=== PATIENT | female | born 1945 | race Caucasian/White ===

== ENCOUNTER 2018-06-23 00:06 | Emergency (ER) | payer MEDICARE, OTHER ==
[2018-06-23 01:36] LABS: ADD MAN DIFF? NO
[2018-06-23 01:39] LABS: BASO # 0.1 x10^3/uL (0.0-0.2); BASO % 2 % (0-3); EOS # 0.2 x10^3/uL (0.0-0.7); EOS % 5 % (0-3); HEMATOCRIT 37.6 % (36.0-47.0); HEMOGLOBIN 12.9 g/dL (12.0-15.5); LYMPH # 0.8 x10^3/uL (1.0-4.8); LYMPH % 18 % (24-48); MEAN CORPUSCULAR HEMOGLOBIN 30 pg (25-35); MEAN CORPUSCULAR HGB CONC 34 g/dL (31-37); MEAN CORPUSCULAR VOLUME 89 fL (79-100); MONO # 0.6 x10^3/uL (0.0-1.1); MONO % 12 % (0-9); NEUT # 2.9 x10^3uL (1.8-7.7); NEUT % 63 % (31-73); PLATELET COUNT 236 x10^3/uL (140-400); RED BLOOD COUNT 4.23 x10^6/uL (3.50-5.40); WHITE BLOOD COUNT 4.7 x10^3/uL (4.0-11.0)
[2018-06-23 01:50] LABS: ANION GAP 8 (6-14); BLOOD UREA NITROGEN 16 mg/dL (7-20); BUN/CREATININE RATIO 20 (6-20); CARBON DIOXIDE 28 mmol/L (21-32); CHLORIDE 98 mmol/L (98-107); CREATININE 0.8 mg/dL (0.6-1.0); GFR 70.7; GLUCOSE 105 mg/dL (70-99); SODIUM 134 mmol/L (136-145)
[2018-06-23 01:51] LABS: BARBITURATES NEG (NEG); BENZODIAZEPINES NEG (NEG); CANNABINOIDS NEG (NEG); COCAINE NEG (NEG); METHADONE NEG (NEG); OPIATES NEG (NEG); PHENCYCLIDINE NEG (NEG)
[2018-06-23 01:54] LABS: AMPHETAMINE/METHAMPHETAMINE NEG (NEG); ETHANOL, URINE NEG (NEG)
[2018-06-23 01:56] LABS: ALBUMIN 3.5 g/dL (3.4-5.0); ALBUMIN/GLOBULIN RATIO 1.2 (1.0-1.7); ALK PHOS 56 U/L (46-116); ALT (SGPT) 16 U/L (14-59); AST (SGOT) 9 U/L (15-37); MAGNESIUM 2.1 mg/dL (1.8-2.4); TOTAL BILIRUBIN 0.3 mg/dL (0.2-1.0); TOTAL PROTEIN 6.4 g/dL (6.4-8.2)
[2018-06-23 01:58] LABS: BACTERIA,URINE FEW /HPF (0-FEW); BILIRUBIN,URINE NEGATIVE (NEG); CLARITY,URINE CLEAR; COLOR,URINE YELLOW; GLUCOSE,URINE NEGATIVE (NEG); NITRITE,URINE NEGATIVE (NEG); PH,URINE 7.5; PROTEIN,URINE NEGATIVE (NEG-TRACE); RBC,URINE 0 /HPF (0-2); SQUAMOUS EPITHELIAL CELL,UR OCC /LPF; UROBILINOGEN,URINE 0.2 mg/dL (0.2 mg/dL)
[2018-06-23 02:17] LABS: NT-PRO BNP 200 pg/mL (0-124)
[2018-06-23 02:17] LABS: CKMB INDEX 0.9 % (0-4); CKMB MASS 0.9 ng/mL (0.0-3.6); CREATINE KINASE 96 U/L (26-192)
[2018-06-23 02:18] LABS: THYROID STIM HORMONE (TSH) 1.544 uIU/mL (0.358-3.74)
[2018-06-23 02:21] LABS: TROPONINI 0.027 ng/mL (0.000-0.055)
== END 2018-06-23 04:32 | disposition short-term general hospital (02) ==
LOC: ER 00:06
DX: S00.03XA Contusion of scalp, initial encounter (principal); R42 Dizziness and giddiness; M54.5 Low back pain; M54.6 Pain in thoracic spine; M25.552 Pain in left hip; I10 Essential (primary) hypertension; F20.9 Schizophrenia, unspecified; Z88.0 Allergy status to penicillin; Z88.5 Allergy status to narcotic agent; Z88.1 Allergy status to other antibiotic agents; Z88.8 Allergy status to other drugs, medicaments and biological substances; W18.09XA Striking against other object with subsequent fall, initial encounter; Y93.89 Activity, other specified; Y99.8 Other external cause status; Y92.89 Other specified places as the place of occurrence of the external cause
CPT/HCPCS: 36415; 70450; 71045; 72125; 72128; 72131; 73502; 80053; 80307; 81001; 82553; 83735; 83880; 84443; 84484; 85025; 87086; 93005; 99285-25; P9612

== ENCOUNTER 2018-08-20 09:30 | Emergency (ER) | payer MEDICAID, MEDICARE ==
[~2018-08-20] VITALS: Ht 165.1 cm; Wt 72.6 kg
[~2018-08-20 09:30] MED LIST: ALPR0.5T PO; AMLO-311 PO; AMLO5TAB4 PO; ATEN25TA PO; BUSP5TAB PO; CHOL10002 PO; CLIN300C8 PO; CLOT15CR3; CLOT15CR5 TP; CLOT30CR TP; CYCL10TA2 PO; DIPH25CA58 PO; ESTR1TAB44 PO; EXELON; FLUT100P MC; FLUT16SP2 NS; FLUV150C PO; HYDR-923 PO; LORA10CA; LORA10TA55 PO; OXCA300O; OXCA300O PO; PANT20TA2 PO; PANT20TA3 PO; POLY17PO29 PO; POLY500P10 MC; PROG100C2 PO; PROG200C2 PO; QUET100T PO; QUET100T4 PO; QUET400T6 PO; RANI150T2 PO; RANI150T21 PO; RIVA1PAT23 TD; RIVA6CAP2 PO; SIME125T PO; TRAZ-86 PO; [UNRECOGNIZED DRUG - OTHER] PO; estradiol PO
[2018-08-20 09:38] VITALS: BP 122/59
--- NOTE | 2018-08-20 09:40 | PHYS DOC ---
Past Medical History Past Medical History: Hypertension, Schizophrenia Additional Past Medical Histor: OCD, insomnia, barrets esophagus Past Surgical History: Knee Replacement, Other Additional Past Surgical Histo: rectal prolapse Alcohol Use: None Drug Use: None Adult General Chief Complaint Chief Complaint: MECHANICAL FALL HPI HPI Patient is a 72 year old female with history of hypertension, schizophrenia, who presents today with scalp laceration, patient states she was ambulating in the group home when she fell back and hit her head. Patient denies any loss of consciousness. She states she was able to get up and go to the nurse's desk and seek help. Denies any neck pain. Review of Systems Review of Systems Constitutional: Denies fever or chills [] Eyes: Denies change in visual acuity, redness, or eye pain [] HENT: Denies nasal congestion or sore throat [] Respiratory: Denies cough or shortness of breath [] Cardiovascular: No additional information not addressed in HPI [] GI: Denies abdominal pain, nausea, vomiting, bloody stools or diarrhea [] : Denies dysuria or hematuria [] Musculoskeletal: Denies back pain or joint pain [] Integument: Reports Laceration Neurologic: Denies headache, focal weakness or sensory changes [] All other systems were reviewed and found to be within normal limits, except as documented in this note. Current Medications Current Medications Current Medications Medications (Trade) Dose Ordered Sig/Belem Start Time Stop Time Status Last Admin Dose Admin Diphtheria/ Tetanus/Acell Pertussis (Boostrix) 0.5 ml ONCE ONCE 08/20/18 09:45 08/20/18 09:46 DC 08/20/18 09:51 0.5 ML Lidocaine/ Epinephrine (LIDOCAINE 1%-EPI 1:100,000 Multi-Dose) 20 ml 1X ONCE 08/20/18 09:45 08/20/18 09:46 DC 08/20/18 09:50 20 ML Allergies Allergies Allergies Coded Allergies Type Severity Reaction Last Updated Verified Penicillins Allergy Unknown throat swelling 06/23/18 Yes morphine Allergy Unknown hallusinations insomina 06/23/18 No sulfamethoxazole Allergy Unknown rash 06/23/18 Yes trimethoprim Allergy Unknown rash 06/23/18 Yes Physical Exam Physical Exam Constitutional: Well developed, well nourished, no acute distress, non-toxic appearance. [] HENT: Normocephalic, atraumatic, bilateral external ears normal, oropharynx moist, no oral exudates, nose normal. [] Eyes: PERRLA, EOMI, conjunctiva normal, no discharge. [] Neck: Normal range of motion, no tenderness, supple, no stridor. [] Cardiovascular:Heart rate regular rhythm, no murmur [] Lungs & Thorax: Bilateral breath sounds clear to auscultation [] Abdomen: Bowel sounds normal, soft, no tenderness, no masses, no pulsatile masses. [] Skin: Right parietal with a laceration approximately 4 cm, bleeding is well controlled. Back: No tenderness, no CVA tenderness. [] Extremities: No tenderness, no cyanosis, no clubbing, ROM intact, no edema. [] Neurologic: Alert and oriented X 3, normal motor function, normal sensory function, no focal deficits noted. Cranial nerves II through XII intact Psychologic: Affect normal, judgement normal, mood normal. [] Current Patient Data Vital Signs Vital Signs Date Time Temp Pulse Resp B/P (MAP) Pulse Ox O2 Delivery O2 Flow Rate FiO2 08/20/18 09:38 99.2 100 20 122/59 (80) 94 Room Air 99.2 EKG EKG [] Radiology/Procedures Radiology/Procedures Laceration/Wound Repair Wound Location: Scalp laceration Wound's Depth, Shape: Vertical Wound Length (cm): Approximately 6 cm Wound Explored: clean Irrigated w/ Saline (ccs): 30 Betadine Prep?: Not applicable Anesthesia: 1% lidocaine with epinephrine Volume Anesthetic (ccs): [Approximately 4 Wound Repaired With: 13 Yoli PROCEDURE: CT HEAD AND CERVICAL SPINE WO Examination: CT head and cervical spine without contrast HISTORY: History of head and neck pain status post fall COMPARISON: 06/23/2018 CT HEAD INDICATION: HEAD AND NECK PAIN POST FALL, POSTERIOR HEAD LACERATION
PRIOR SENT COMPARISON: None Available. Exposure: One or more of the following individualized dose reduction techniques were utilized for this examination: 1. Automated exposure control 2. Adjustment of the mA and/or kV according to patient size 3. Use of iterative reconstruction technique TECHNIQUE: 5 mm contiguous axial images were obtained from the skull base to the vertex in both bone and soft tissue algorithm. FINDINGS: Mild bilateral periventricular white matter hypodensities likely chronic small vessel ischemic disease. Surgical yoli identified in the right posterior parietal scalp. No evidence of acute intracranial hemorrhage. No extra-axial fluid collections. No mass effect or midline shift. Ventricular size is appropriate. Basal cisterns are patent. No fractures identified.Akins-white differentiation is preserved.Globes and orbits are within normal limits. Paranasal sinuses and mastoid air cells are clear. IMPRESSION: No acute intracranial findings. CT CERVICAL SPINE INDICATION: HEAD AND NECK PAIN POST FALL, POSTERIOR HEAD LACERATION
PRIOR SENT COMPARISON: None Available. Technique: axial images were obtained from the skull base through the cervicothoracic junction in both bone and soft tissue algorithm. Additional sagittal and coronal reconstructions were also performed. FINDINGS:. The lateral masses of C1 are aligned upon C2. No fractures identified. The bony canal is patent throughout. Moderate to severe multilevel degenerative changes identified cervical spine similar to prior exam. Mild cervical scoliosis. The paraspinous soft tissues are unremarkable. Visualized intracranial contents are unremarkable. Lung apices are clear. IMPRESSION: 1. No acute fracture of the cervical spine. Correlate clinically. 2. Moderate to severe degenerative changes cervical spine. Electronically signed by: Zach Zhao MD (08/20/2018 11:11 AM) [facility] DICTATED and SIGNED BY: ZACH ZHAO MD DATE: 08/20/18 1102 Course & Med Decision Making Course & Med Decision Making Pertinent Labs and Imaging studies reviewed. (See chart for details) Patient has scalp laceration after falling at the group home. CT of the head and cervical spine are negative for any acute findings, laceration was repaired by me as noted in procedures. Wound can't see return precautions provided. Tetanus updated. Follow-up with PCP in 10 days for staple removal. Dragon Disclaimer Dragon Disclaimer This electronic medical record was generated, in whole or in part, using a voice recognition dictation system. Departure Departure Impression: Primary Impression: Fall from standing Additional Impressions: Scalp laceration Head contusion Disposition: 01 HOME, SELF-CARE Condition: STABLE Referrals: NO PCP (PCP) follow up with your doctor in 10 days for staple removal Patient Instructions: Contusion, Fall Prevention and Home Safety, Laceration Care, Adult Additional Instructions: You were evaluated in the emergency room after falling. Your CT of the head and cervical spine are negative for any acute findings. Your laceration was closed with yoli. You can shower and wash your hair. Follow-up with your own doctor in 10 days for staple removal. Monitor the area for any signs of infection including increased redness warmth or yellow drainage from the area and return to the emergency room or see her doctor if they occur. Problem Qualifiers Primary Impression: Fall from standing Encounter type: initial encounter Qualified Codes: W19.XXXA - Unspecified fall, initial encounter Additional Impressions: Scalp laceration Encounter type: initial encounter Qualified Codes: S01.01XA - Laceration without foreign body of scalp, initial encounter Head contusion Encounter type: initial encounter Contusion of head detail: scalp Qualified Codes: S00.03XA - Contusion of scalp, initial encounter RENÉE HAM APRN Aug 20, 2018 09:40
[2018-08-20] MEDS ORDERED: DIPHTH,PERTUSS(ACELL),TET TOX 0.5 ML DISP.SYRIN. VAX IM ONE (09:45)
[2018-08-20] MEDS ORDERED: LIDOCAINE 1%/EPI 1:100,000 20 ML VIAL. INJ ONE (09:45)
--- NOTE | 2018-08-20 11:14 | RAD ---
Examination: CT head and cervical spine without contrast HISTORY: History of head and neck pain status post fall COMPARISON: 06/23/2018 CT HEAD INDICATION: HEAD AND NECK PAIN POST FALL, POSTERIOR HEAD LACERATION
PRIOR SENT COMPARISON: None Available. Exposure: One or more of the following individualized dose reduction techniques were utilized for this examination: 1. Automated exposure control 2. Adjustment of the mA and/or kV according to patient size 3. Use of iterative reconstruction technique TECHNIQUE: 5 mm contiguous axial images were obtained from the skull base to the vertex in both bone and soft tissue algorithm. FINDINGS: Mild bilateral periventricular white matter hypodensities likely chronic small vessel ischemic disease. Surgical arleth identified in the right posterior parietal scalp. No evidence of acute intracranial hemorrhage. No extra-axial fluid collections. No mass effect or midline shift. Ventricular size is appropriate. Basal cisterns are patent. No fractures identified.Akins-white differentiation is preserved.Globes and orbits are within normal limits. Paranasal sinuses and mastoid air cells are clear. IMPRESSION: No acute intracranial findings. CT CERVICAL SPINE INDICATION: HEAD AND NECK PAIN POST FALL, POSTERIOR HEAD LACERATION
PRIOR SENT COMPARISON: None Available. Technique: axial images were obtained from the skull base through the cervicothoracic junction in both bone and soft tissue algorithm. Additional sagittal and coronal reconstructions were also performed. FINDINGS:. The lateral masses of C1 are aligned upon C2. No fractures identified. The bony canal is patent throughout. Moderate to severe multilevel degenerative changes identified cervical spine similar to prior exam. Mild cervical scoliosis. The paraspinous soft tissues are unremarkable. Visualized intracranial contents are unremarkable. Lung apices are clear. IMPRESSION: 1. No acute fracture of the cervical spine. Correlate clinically. 2. Moderate to severe degenerative changes cervical spine. Electronically signed by: Zach Gutierrez MD (08/20/2018 11:11 AM) [facility]
== END 2018-08-20 13:30 | disposition home or self-care (01) ==
LOC: ER 09:30
DX: S01.01XA Laceration without foreign body of scalp, initial encounter (principal); S00.93XA Contusion of unspecified part of head, initial encounter; I10 Essential (primary) hypertension; F20.9 Schizophrenia, unspecified; Z88.0 Allergy status to penicillin; Z88.2 Allergy status to sulfonamides; Z88.1 Allergy status to other antibiotic agents; Z88.5 Allergy status to narcotic agent; W18.09XA Striking against other object with subsequent fall, initial encounter; Y93.89 Activity, other specified; Y92.89 Other specified places as the place of occurrence of the external cause; Y99.8 Other external cause status
CPT/HCPCS: 12002; 70450; 72125; 90471; 90715; 99284; J3490

== ENCOUNTER 2020-01-23 10:52 | Inpatient (IN) | payer MEDICAID, MEDICARE, OTHER ==
[2020-01-22 23:00] VITALS: BP 123/51
[~2020-01-23 10:52] MED LIST changes: +ACET325T21 PO; +ACET325T9 PO; +APIX5TAB PO; +ATOR40TA59 PO; +BISA10SU55 RC; +CLON-77 PO; +DILT120C55 PO; +DILT120C99 PO; +DILT240C33 PO; +DIVA-53 PO; +DOCU100C28 PO; +FERR325T14 PO; +FLUT16SP NS; +FURO-68 PO; +HYDR-2761 PO; +LORA2ORA7 SL; +LOSA100T14 PO; +LURA60TA PO; +MAG355OR12 PO; +MAGN400O7 PO; +MELA3TAB4 PO; +METH57CR17 TP; +METO200T2 PO; +METO50TA6 PO; +MIRT15TA PO; +OXYM-27 NS; +POLY15DR27 EACHEYE; +PRIM50TA24 PO; +PROG100C10 PO; -PROG100C2 PO; +PROG200C10 PO; -PROG200C2 PO; +PROP40TA PO; -QUET400T6 PO; +QUET400T7 PO; +RANI-376 PO; -RANI150T21 PO; +TRAM50TA PO; +TRAZ-118 PO; +TRAZ-123 PO; -TRAZ-86 PO; +cholecalciferol
[2020-01-23] MEDS ORDERED: HALOPERIDOL 2 MG/ML ORAL.CONC. PO PRN (11:15)
[2020-01-23] MEDS ORDERED: PROMETHAZINE 25 MG SUPP.RECT. PR PRN (11:15)
[2020-01-23] MEDS ORDERED: BISACODYL 10 MG SUPP.RECT. PR PRN (11:15)
[2020-01-23] MEDS ORDERED: ACETAMINOPHEN 650 MG SUPP.RECT. PR PRN (11:15)
[2020-01-23] MEDS ORDERED: MORPHINE SULFATE 2 MG/ML VIAL. IV PRN (11:15)
[2020-01-23] MEDS ORDERED: SCOPOLAMINE 1.5MG PATCH. TD SCH (11:30)
[2020-01-23] MEDS: MORPHINE SULFATE 20 MG/ML CONC SOLUTION. SL PRN ×2 (11:54→15:03)
[2020-01-23] MEDS: LORazepam 1 MG TABLET PO PRN (13:43)
--- NOTE | 2020-01-23 17:15 | NUR ---
Patient transferred to floor from [facility] at 1530 on inpatient hospice with [facility]. Around 1630 patients sister walked to nurse station stating that her and her sister called the suicide hotline, about the patient feeling regarding suicide. Preliminary School Psychologist spoke with patient, patient stated that he has thought of suicide and she has a plan, patient stated that she is suicidal and homicidal. Patient stated her plan was to strangle herself. Patient then stated he has had those thoughts for over a year now. Notified charge nurse KATELYN Delacruz, notified nursing repair department supervisor, KATELYN Abbott. MD Gretchen notified orders for 1:1 and consult to PAT team.
--- NOTE | 2020-01-23 18:20 | NUR ---
PAT team to eval patient and no longer need 1:1, MD Gretchen notified. 1:1 D/C
[2020-01-23 19:00] VITALS: BP 130/75
[2020-01-23] MEDS: risperiDONE 0.25 MG TABLET. PO SCH (20:44)
[2020-01-23] MEDS: DIVALPROEX DELAYED RELEASE 500 MG TABLET.DR. PO SCH (20:45)
[2020-01-23] MEDS ORDERED: traZODone 100 MG TABLET. PO SCH (21:00)
[2020-01-23] MEDS ORDERED: MIRTAZAPINE 15 MG TABLET PO SCH (21:00)
[2020-01-23 23:00] VITALS: BP 123/51
[2020-01-24] MEDS: DIVALPROEX DELAYED RELEASE 500 MG TABLET.DR. PO SCH ×3 (00:36→12:04)
[2020-01-24 03:00] VITALS: BP 142/61
[2020-01-24] MEDS: LORazepam 1 MG TABLET PO PRN (05:04)
--- NOTE | 2020-01-24 08:45 | PDOC1 ---
History and Physical Date of Admission Date of Admission DATE: 01/24/20 TIME: 08:43 History of Present Illness History of Present Illness Ms López is a 74yo F w/ PMHx CHF and schizophrenia, current SNF resident who was brought in by EMS with worsening shortness of breath pound found to be hypoxic 86% on room air doing okay on nasal cannula oxygenation also found to have mild to moderate atrial fibrillation with RVR rates her averaging around the 120s in the emergency room Significant elevation in BNP AND acute kidney injury baseline creatinine is normal less than 1. Was Cr 2.4 on admit troponin negative lactic acid is 3.1. Chest x-ray shows bilateral atelectasis or infiltrate with bilateral pleural effusions and some congestive changes Has continued to decline, now admitted to in hospice Past Medical History Cardiovascular: AFIB, HTN, Hyperlipidemia Pulmonary: COPD CENTRAL NERVOUS SYSTEM: Dementia, Seizure, TIA GI: GERD Heme/Onc: Anemia NOS Psych: Anxiety, Depression, Schizophrenia Musculoskeletal: Osteoarthritis Renal/: No pertinent hx Past Surgical History Past Surgical History: Tonsillectomy, Hysterectomy, Other Family History Family History: Hypertension Social History Smoke: No ALCOHOL: none Drugs: None Current Medications Current Medications Current Medications Morphine Sulfate (Roxanol Conc) 5 mg PRN Q2HRS PRN SL SOA/MOD-SEVERE PAIN Last administered on 01/23/20at 15:03; Start 01/23/20 at 11:15 Morphine Sulfate (Morphine Sulfate) 1 mg PRN Q2HR PRN IV SOA/PAIN; Start 01/23/20 at 11:15 Lorazepam (Ativan) 1 mg PRN Q4HRS PRN PO ANXIETY / AGITATION Last administered on 01/24/20at 05:04; Start 01/23/20 at 11:15 Bisacodyl (Dulcolax Supp) 10 mg PRN DAILY PRN IA CONSTIPATION; Start 01/23/20 at 11:15 Promethazine HCl (Phenergan Supp) 25 mg PRN Q4HRS PRN IA NAUSEA/VOMITING; Start 01/23/20 at 11:15 Acetaminophen (Tylenol Supp) 650 mg PRN Q4HRS PRN IA MILD PAIN / TEMP; Start 01/23/20 at 11:15 Scopolamine (Transderm-Scop) 1 patch Q3DAYS TD Last administered on 01/23/20at 11:54; Start 01/23/20 at 11:30 Haloperidol Lactate (HALDOL 2mg ORAL CONC) 2 mg PRN Q6HRS PRN PO AGITATION; Start 01/23/20 at 11:15 Risperidone (RisperDAL) 0.25 mg BID PO Last administered on 01/23/20at 20:44; Start 01/23/20 at 21:00 Mirtazapine (Remeron) 15 mg QHS PO Last administered on 01/23/20 20:44; Start 01/23/20 at 21:00 Trazodone HCl (Desyrel) 100 mg QHS PO Last administered on 01/23/20at 20:44; Start 01/23/20 at 21:00 Divalproex Sodium (Depakote) 500 mg [id number] PO Last administered on 01/24/20at 05:04; Start 01/23/20 at 18:00 Active Scripts Active Lorazepam Intensol (Lorazepam) 2 Mg/1 Ml Oral.conc 2 Mg SL PRN Q4HRS PRN 10 Days Tylenol (Acetaminophen) 325 Mg Tablet 650 Mg PO PRN Q4HRS PRN 10 Days Reported Acetaminophen 325 Mg Tablet 2 Tab PO PRN Q6HRS PRN 24 Days Diltiazem 24Hr Cd (Diltiazem HCl) 240 Mg Cap.er.24h 1 Cap PO DAILY 30 Days Remeron (Mirtazapine) 15 Mg Tablet 1 Tab PO QHS Nasal Decongestant (Oxymetazoline Hcl) 30 Ml [place] 30 Ml NS PRN Q12HR PRN [place] Greaseless Cream (Methyl Salicylate/Menthol) 57 Gm Cream..g. 1 Yung TP QID 10 Days Latuda (Lurasidone Hcl) 60 Mg Tablet 1 Tab PO QHS 30 Days Docusate Sodium 100 Mg Capsule 1 Cap PO BID 7 Days Divalproex Sodium 500 Mg Tablet.dr 1 Tab PO BID Clonazepam (Clonazepam) 0.5 Mg Tablet 0.5 Mg PO TID Dulcolax (Bisacodyl) 10 Mg Supp.rect 1 Supp RC DAILY 10 Days Artificial Tears (Polyvinyl Alcohol) 15 Ml Drops 1 Drop EACHEYE PRN TID 20 Days Trazodone Hcl 100 Mg Tablet 100 Mg PO HS Allergies Allergies: Coded Allergies: Penicillins (Verified Allergy, Severe, throat swelling, 01/01/20) sulfamethoxazole (Verified Allergy, Intermediate, rash, 01/01/20) trimethoprim (Verified Allergy, Intermediate, rash, 01/01/20) I S O L A T I O N *CONTACT* (Verified Allergy, Unknown, 01/01/20) mrsa morphine (Verified Adverse Reaction, Intermediate, hallusinations insomina, 01/01/20) ROS General: YES: Fatigue, Malaise; No: Chills, Night Sweats, Appetite, Other PSYCHOLOGICAL ROS: YES: Anxiety, Behavioral Disorder, Depression, Disorientation, Hallucinations, Memory difficulties, Mood Swings, Obsessive thoughts; No: Concentration difficultie, Decreased libido, Hostility, Irritablity, Physical abuse, Sexual abuse, Sleep disturbances, Suicidal ideation, Other Eyes: No Blurry vision, No Decreased vision, No Double vision, No Dry eyes, No Excessive tearing, No Eye Pain, No Itchy Eyes, No Loss of vision, No Photophobia, No Scotomata, No Uses contacts, No Uses glasses, No Other HEENT: No: Heacaches, Visual Changes, Hearing change, Nasal congestion, Nasal discharge, Oral lesions, Sinus pain, Sore Throat, Epistaxis, Sneezing, Snoring, Tinnitus, Vertigo, Vocal changes, Other ALLERGY AND IMMUNOLOGY: No: Hives, Insect Bite Sensitivity, Itchy/Watery Eyes, Nasal Congestion, Post Nasal Drip, Seasonal Allergies, Other Hematological and Lymphatic: No: Bleeding Problems, Blood Clots, Blood Transfusions, Brusing, Night Sweats, Pallor, Swollen Lymph Nodes, Other ENDOCRINE: No: Breast Changes, Galactorrhea, Hair Pattern Changes, Hot Flashes, Malaise/lethargy, Mood Swings, Palpitations, Polydipsia/polyuria, Skin Changes, Temperature Intolerance, Unexpected Weight Changes, Other Breast: No New/Changing Breast Lumps, No Nipple changes, No Nipple discharge, No Other Respiratory: YES: Shortness of breath; No: Cough, Hemoptysis, Orthopnea, Pleuritic Pain, SOB with excertion, Sputum Changes, Stridor, Tachypnea, Wheezing, Other Cardiovascular: yes Palpitations; No Chest Pain, No Orthopnea, No Paroxysmal Noc. Dyspnea, No Edema, No Lt Headedness, No Other Gastrointestinal: No Nausea, No Vomiting, No Abdominal Pain, No Diarrhea, No Constipation, No Melena, No Hematochezia, No Other Genitourinary: No Dysuria, No Frequency, No Incontinence, No Hematuria, No Retention, No Discharge, No Urgency, No Pain, No Flank Pain, No Other, No , No , No , No , No , No , No Musculoskeletal: No Gait Disturbance, No Joint Pain, No Joint Stiffness, No Joint Swelling, No Muscle Pain, No Muscular Weakness, No Pain In:, No Swelling In:, No Other Neurological: No Behavorial Changes, No Bowel/Bladder ControlChng, No Confusion, No Dizziness, No Gait Disturbance, No Headaches, No Impaired Coord/balance, No Memory Loss, No Numbness/Tingling, No Seizures, No Speech Problems, No Tremors, No Visual Changes, No Weakness, No Other Skin: No Dry Skin, No Eczema, No Hair Changes, No Lumps, No Mole Changes, No Mottling, No Nail Changes, No Pruritus, No Rash, No Skin Lesion Changes, No Other, No Acne Physical Exam General: Alert, Cooperative, No acute distress HEENT: Atraumatic, PERRLA, EOMI, Mucous membr. moist/pink Lungs: Clear to auscultation, Normal air movement Heart: irregularly irregular Abdomen: Normal bowel sounds, Soft, No tenderness, No hepatosplenomegaly, No masses Rectal Exam: not examined Skin: No rashes, No breakdown, No significant lesion Neuro: Normal speech, Strength at 5/5 X4 ext, Normal tone, Sensation intact, Cranial nerves 3-12 NL, Reflexes 2+ Psych/Mental Status: Other (Tangential, circumferential) Vitals Vitals Vital Signs Date Time Temp Pulse Resp B/P (MAP) Pulse Ox O2 Delivery O2 Flow Rate FiO2 01/24/20 03:00 98.4 77 18 142/61 (88) 94 Room Air 98.4 01/23/20 19:00 2.0 VTE Prophylaxis Ordered VTE Prophylaxis Devices: Yes VTE Pharmacological Prophylaxi: Yes Assessment/Plan Assessment/Plan A/P: Heart failure ACUTE DIASTOLIC atrial fibrillation with rapid ventricular response. on eliquis MEI with SEVERE HYPERKALEMIA Pneumonia with effusions, POSSIBLE GRAM NEG/ GRAM POS Moderate to large left-sided pleural effusion and moderate right-sided pleural effusion with associated compressive atelectasis of the entire left lower lobe and almost the entire right lower lobe. 2/25 ct under ultrasound guidance into the pleural space and 1100 cc's of frankly bloody fluid was removed. acute hypoxic resp failure normocytic anemia mild concentric left ventricular hypertrophy. REMOTE TOBACCO ABUSE FEN- Cardiac diet PPX - SCDs DNR/DNI Dispo - inpatient hospice with plans for d/c to SNF, stable for 24 hours. DAMARIS MATHUR MD Jan 24, 2020 08:45
[2020-01-24 08:59] VITALS: BP 146/65
[2020-01-24] MEDS: risperiDONE 0.25 MG TABLET. PO SCH (08:59)
[2020-01-24] MEDS ORDERED: LORA2ORA7 SL (10:18)
[2020-01-24] MEDS ORDERED: MORP100S3 SL (10:18)
--- NOTE | 2020-01-24 10:20 | SNU/HH DC ---
DISCHARGE ORDERS DISCHARGE INFORMATION: DISCHARGE DATE: Jan 24, 2020 FINAL DIAGNOSIS Afib with RVR CONDITION ON DISCHARGE: Critical CODE STATUS: Code Status: DNR/DNI HOSPICE: HOSPICE: Yes HOSPICE EVAL & TREAT: Yes POST DISCHARGE ORDERS: ACTIVITY ORDERS: Activity as tolerated WEIGHT BEARING STATUS: No restrictions DIET AFTER DISCHARGE: Cardiac CHECKS AFTER DISCHARGE: CHECKS AFTER DISCHARGE: Check blood press - daily, Weigh Yourself Daily TREATMENT/EQUIPMENT ORDERS: RESPIRATORY EQUIPMENT NEEDED: Oxygen, Nebulizer DISCHARGE MEDICATIONS: Home Meds Active Scripts Morphine Sulfate (MORPHINE SULFATE) 100 Mg/5 Ml Solution, 5 MG SL PRN Q2HRS PRN for SOA/MOD-SEVERE PAIN for 30 Days, #30 MISC Prov:DAMARIS MATHUR MD 01/24/20 Lorazepam (LORAZEPAM INTENSOL) 2 Mg/1 Ml Oral.conc, 2 MG SL PRN Q4HRS PRN for ANXIETY / AGITATION for 10 Days, #20 MISC Prov:DAMARIS MATHUR MD 01/24/20 Acetaminophen (TYLENOL) 325 Mg Tablet, 650 MG PO PRN Q4HRS PRN for TEMP OVER 100.4F OR MILD PAIN for 10 Days, #30 TAB Prov:VALARIE BAUER MD 01/23/20 Reported Medications Mirtazapine (REMERON) 15 Mg Tablet, 1 TAB PO QHS for depression, #30 TAB 1 Refill 12/30/19 Oxymetazoline Hcl (NASAL DECONGESTANT) 30 Ml [place], 30 ML NS PRN Q12HR PRN for dryness, SPRAY 12/30/19 Methyl Salicylate/Menthol (BENGAY GREASELESS CREAM) 57 Gm Cream..g., 1 ANAMARIA TP QID for muscle pain for 10 Days, #57 GM 0 Refills 20 Lurasidone Hcl (LATUDA) 60 Mg Tablet, 1 TAB PO QHS for depression for 30 Days, #30 TAB 0 Refills 20 Docusate Sodium (DOCUSATE SODIUM) 100 Mg Capsule, 1 CAP PO BID for constipation for 7 Days, #14 CAP 0 Refills 20 Divalproex Sodium (DIVALPROEX SODIUM) 500 Mg Tablet.dr, 1 TAB PO BID for mood, #60 TAB 1 Refill 20 Bisacodyl (DULCOLAX) 10 Mg Supp.rect, 1 SUPP RC DAILY for constipation for 10 Days, #10 SUPP 0 Refills 12/30/19 Polyvinyl Alcohol (ARTIFICIAL TEARS) 15 Ml Drops, 1 DROP EACHEYE PRN TID for dry eyes for 20 Days, #15 ML 0 Refills 12/30/19 Trazodone Hcl (TRAZODONE HCL) 100 Mg Tablet, 100 MG PO HS 10/28/13 Discontinued Reported Medications Acetaminophen (ACETAMINOPHEN) 325 Mg Tablet, 2 TAB PO PRN Q6HRS PRN for PAIN for 24 Days, #100 TAB 0 Refills 01/15/20 Diltiazem HCl (Diltiazem 24Hr Cd) 240 Mg Cap.er.24h, 1 CAP PO DAILY for afib, HTN for 30 Days, #30 CAP 0 Refills 01/15/20 Clonazepam (CLONAZEPAM ) 0.5 Mg Tablet, 0.5 MG PO TID for FOR ANXIETY, TAB 12/30/19 Ferrous Sulfate (FERROUS SULFATE) 325 Mg Tablet, 1 TAB PO DAILY for anemia, #30 TAB 3 Refills 01/15/20 Metoprolol Succinate (TOPROL XL) 200 Mg Tab.er.24h, 100 MG PO DAILY for afib, HTN, #30 TAB 0 Refills 01/15/20 Apixaban (ELIQUIS) 5 Mg Tablet, 5 MG PO BID for A FIB, TAB 01/08/20 Tramadol Hcl (TRAMADOL HCL) 50 Mg Tablet, 50 MG PO PRN Q6HRS for pain, TAB 12/30/19 Magnesium Hydroxide (MILK OF MAGNESIA) 400 Mg/5 Ml Oral.susp, 400 MG PO PRN DAILY PRN for CONSTIPATION, MISC 12/30/19 Mag Hydrox/Al Hydrox/Simeth (MAALOX MAXIMUM STRENGTH SUSP) 355 Ml Oral.susp, 355 ML PO PRN Q6HRS PRN for DYSPEPSIA, MISC 12/30/19 Atorvastatin Calcium (ATORVASTATIN CALCIUM) 40 Mg Tablet, 1 TAB PO DAILY for cholesterol, #30 TAB 5 Refills 12/30/19 Melatonin (MELATONIN) 3 Mg Tablet, 1 TAB PO QHS for sleep, #30 TAB 2 Refills 12/30/19 Simethicone (GAS-X) 125 Mg Tab.chew, 125 MG PO QIDPRN, TAB.CHEW 10/28/13 Diphenhydramine Hcl (BENADRYL) 25 Mg Capsule, 25 MG PO every 8 hrs prn, #2 10/28/13 Polyethylene Glycol 3350 (MIRALAX) 17 Gm Powd.pack, 17 GM PO for 1 Day 10/28/13 Fluticasone Propionate (FLONASE) 16 Gm [place].susp, 16 GM NS 1X for 1 Day 10/28/13 DAMARIS MATHUR MD Jan 24, 2020 10:20
--- NOTE | 2020-01-24 13:38 | NUR ---
Discharge Note: [facility] Discharge instructions and discharge home medications reviewed with Patient and a copy given. All questions have been answered and understanding verbalized. The following instructions and handouts were given: Hospice care Discontinued lines and drains: intact. Patient discharged to Hospice with Family Member via Wheelchair walked off unit by secure transport
--- NOTE | 2020-01-25 20:20 | PDOC3 ---
Discharge Summary Visit Information Date of Admission: Jan 23, 2020 Date of Discharge: Jan 24, 2020 Admitting Diagnosis: Afib with RVR Final Diagnosis Acute CHF Brief Hospital Course Allergies Allergies Coded Allergies Type Severity Reaction Last Updated Verified Penicillins Allergy Severe throat swelling 01/01/20 Yes sulfamethoxazole Allergy Intermediate rash 01/01/20 Yes trimethoprim Allergy Intermediate rash 01/01/20 Yes I S O L A T I O N *CONTACT* Allergy Unknown 01/01/20 Yes morphine Adverse Reaction Intermediate hallusinations insomina 01/01/20 Yes Vital Signs Vital Signs Date Time Temp Pulse Resp B/P (MAP) Pulse Ox O2 Delivery O2 Flow Rate FiO2 01/24/20 08:59 97.7 92 22 146/65 (92) 90 Nasal Cannula 2.0 97.7 Brief Hospital Course Ms López is a 74yo F w/ PMHx CHF and schizophrenia, current SNF resident who was brought in by EMS with worsening shortness of breath pound found to be hypoxic 86% on room air doing okay on nasal cannula oxygenation also found to have mild to moderate atrial fibrillation with RVR rates her averaging around the 120s in the emergency room Significant elevation in BNP AND acute kidney injury baseline creatinine is normal less than 1. Was Cr 2.4 on admit troponin negative lactic acid is 3.1. Chest x-ray shows bilateral atelectasis or infiltrate with bilateral pleural effusions and some congestive changes Has continued to decline, now admitted to inpt hospice D/w sister and Sabine SOUSA as she has been stable she would like to return to [facility] with hospice services. Heart failure ACUTE DIASTOLIC atrial fibrillation with rapid ventricular response. on eliquis MEI with SEVERE HYPERKALEMIA Pneumonia with effusions, POSSIBLE GRAM NEG/ GRAM POS Moderate to large left-sided pleural effusion and moderate right-sided pleural effusion with associated compressive atelectasis of the entire left lower lobe and almost the entire right lower lobe. 01/16 ct under ultrasound guidance into the pleural space and 1100 cc's of frankly bloody fluid was removed. acute hypoxic resp failure normocytic anemia mild concentric left ventricular hypertrophy. REMOTE TOBACCO ABUSE FEN- Cardiac diet PPX - SCDs DNR/DNI Dispo - inpatient hospice with plans for d/c to SNF, stable for 24 hours. Greater than 135 minutes spent on same day admit and d/c Discharge Information Condition at Discharge: Stable Follow Up: Weeks (1) Disposition/Orders: D/C to Another Facility ([facility] hosp[facility]) Scheduled Bisacodyl (Dulcolax) 10 Mg Supp.rect, 1 SUPP RC DAILY for constipation for 10 Days, #10 Ref 0 (Reported) Entered as Reported by: Jared Brennan on 12/30/19210 Divalproex Sodium (Divalproex Sodium) 500 Mg Tablet.dr, 1 TAB PO BID for mood, #60 Ref 1 (Reported) Entered as Reported by: Jared Brennan on 12/30/19210 Docusate Sodium (Docusate Sodium) 100 Mg Capsule, 1 CAP PO BID for constipation for 7 Days, #14 Ref 0 (Reported) Entered as Reported by: Jared Brennan on 12/30/19210 Lurasidone Hcl (Latuda) 60 Mg Tablet, 1 TAB PO QHS for depression for 30 Days, #30 Ref 0 (Reported) Entered as Reported by: Jared Brennan on 12/30/19210 Methyl Salicylate/Menthol (Bengay Greaseless Cream) 57 Gm Cream..g., 1 ANAMARIA TP QID for muscle pain for 10 Days, #57 Ref 0 (Reported) Entered as Reported by: Jared Brennan on 12/30/19225 Mirtazapine (Remeron) 15 Mg Tablet, 1 TAB PO QHS for depression, #30 Ref 1 (Reported) Entered as Reported by: Jared Brennan on 12/30/19225 Polyvinyl Alcohol (Artificial Tears) 15 Ml Drops, 1 DROP EACHEYE PRN TID for dry eyes for 20 Days, #15 Ref 0 (Reported) Entered as Reported by: Jared Brennan on 12/30/19210 Trazodone Hcl (Trazodone Hcl) 100 Mg Tablet, 100 MG PO HS, (Reported) Entered as Reported by: Leidy Bee on 10/28/13 4654 Scheduled PRN Acetaminophen (Tylenol) 325 Mg Tablet, 650 MG PO PRN Q4HRS PRN for TEMP OVER 100.4F OR MILD PAIN for 10 Days, #30 Prescribed by: VALARIE BAUER MD on 01/23/20 1034 Lorazepam (Lorazepam Intensol) 2 Mg/1 Ml Oral.conc, 2 MG SL PRN Q4HRS PRN for ANXIETY / AGITATION for 10 Days, #20 Prescribed by: DAMARIS MATHUR MD on 01/24/20 1018 Morphine Sulfate (Morphine Sulfate) 100 Mg/5 Ml Solution, 5 MG SL PRN Q2HRS PRN for SOA/MOD-SEVERE PAIN for 30 Days, #30 Prescribed by: DAMARIS MATHUR MD on 01/24/20 1018 Oxymetazoline Hcl (Nasal Decongestant) 30 Ml Carson, 30 ML NS PRN Q12HR PRN for dryness, (Reported) Entered as Reported by: Jared Brennan on 12/30/19 0226 Discontinued Medications Acetaminophen (Acetaminophen) 325 Mg Tablet, 2 TAB PO PRN Q6HRS PRN for PAIN for 24 Days, #100 Ref 0 (Reported) Entered as Reported by: VALARIE MAHAN on 01/15/202238 Apixaban (Eliquis) 5 Mg Tablet, 5 MG PO BID for A FIB, (Reported) Entered as Reported by: TONY PEDRAZA on 01/08/20 1052 Atorvastatin Calcium (Atorvastatin Calcium) 40 Mg Tablet, 1 TAB PO DAILY for cholesterol, #30 Ref 5 (Reported) Entered as Reported by: Jared Brennan on 12/30/19 0211 Clonazepam (Clonazepam ) 0.5 Mg Tablet, 0.5 MG PO TID for FOR ANXIETY, (Reported) Entered as Reported by: Jared Brennan on 12/30/19 0211 Diltiazem HCl (Diltiazem 24Hr Cd) 240 Mg Cap.er.24h, 1 CAP PO DAILY for afib, HTN for 30 Days, #30 Ref 0 (Reported) Entered as Reported by: VALARIE MAHAN on 01/15/202238 Diphenhydramine Hcl (Benadryl) 25 Mg Capsule, 25 MG PO every 8 hrs prn, #2 (Reported) Entered as Reported by: Leidy Bee on 10/28/13 2354 Ferrous Sulfate (Ferrous Sulfate) 325 Mg Tablet, 1 TAB PO DAILY for anemia, #30 Ref 3 (Reported) Entered as Reported by: VALARIE MAHAN on 01/15/202238 Fluticasone Propionate (Flonase) 16 Gm Carson.susp, 16 GM NS 1X for 1 Days, (Reported) Entered as Reported by: Leidy Bee on 10/28/13 2319 Mag Hydrox/Al Hydrox/Simeth (Maalox Maximum Strength Susp) 355 Ml Oral.susp, 355 ML PO PRN Q6HRS PRN for DYSPEPSIA, (Reported) Entered as Reported by: Jared Brennan on 12/30/19210 Magnesium Hydroxide (Milk Of Magnesia) 400 Mg/5 Ml Oral.susp, 400 MG PO PRN DAILY PRN for CONSTIPATION, (Reported) Entered as Reported by: Jared Brennan on 12/30/19225 Melatonin (Melatonin) 3 Mg Tablet, 1 TAB PO QHS for sleep, #30 Ref 2 (Reported) Entered as Reported by: Jared Brennan on 12/30/19134 Metoprolol Succinate (Toprol Xl) 200 Mg Tab.er.24h, 100 MG PO DAILY for afib, HTN, #30 Ref 0 (Reported) Entered as Reported by: VALARIE MAHAN on 01/15/202238 Polyethylene Glycol 3350 (Miralax) 17 Gm Powd.pack, 17 GM PO for 1 Days, (Re ported) Entered as Reported by: Leidy Bee on 10/28/13 235 Simethicone (Gas-X) 125 Mg Tab.chew, 125 MG PO QIDPRN, (Reported) Entered as Reported by: Leidy Bee on 10/28/13 235 Tramadol Hcl (Tramadol Hcl) 50 Mg Tablet, 50 MG PO PRN Q6HRS for pain, (Reported) Entered as Reported by: Jared Brennan on 12/30/19225 ADMARIS MATHUR MD Jan 25, 2020 20:20
== END 2020-01-24 13:41 | disposition hospice, home (50) | DRG 193 ==
LOC: 2 NORTH 10:52 → UNDOADMIN 10:52 → 5 SOUTH 15:30 → 2 NORTH 15:30 → 5 SOUTH 18:22
PROVIDERS: ADMIT Internal Medicine; ATTEND Internal Medicine
DX: J18.9 Pneumonia, unspecified organism (principal); J96.01 Acute respiratory failure with hypoxia; J44.0 Chronic obstructive pulmonary disease with (acute) lower respiratory infection; J98.11 Atelectasis; N17.9 Acute kidney failure, unspecified; D64.9 Anemia, unspecified; E78.5 Hyperlipidemia, unspecified; E87.5 Hyperkalemia; F03.90 Unspecified dementia, unspecified severity, without behavioral disturbance, psychotic disturbance, mood disturbance, and anxiety; F20.9 Schizophrenia, unspecified; I11.0 Hypertensive heart disease with heart failure; I48.91 Unspecified atrial fibrillation; I50.9 Heart failure, unspecified; Z66 Do not resuscitate; Z82.49 Family history of ischemic heart disease and other diseases of the circulatory system; Z86.73 Personal history of transient ischemic attack (TIA), and cerebral infarction without residual deficits; Z90.710 Acquired absence of both cervix and uterus; Z87.891 Personal history of nicotine dependence; F32.9 Major depressive disorder, single episode, unspecified; F41.9 Anxiety disorder, unspecified; K21.9 Gastro-esophageal reflux disease without esophagitis; M19.90 Unspecified osteoarthritis, unspecified site
CPT/HCPCS: G0378